=== PATIENT | male | born 1990 | race Caucasian/White ===

== ENCOUNTER 2019-06-22 02:51 | Emergency (ER) | payer MEDICAID ==
[~2019-06-22] VITALS: Ht 182.9 cm; Wt 94.3 kg
[~2019-06-22 02:51] MED LIST: APAP/HYDROCODON1 T13 PO; AUG500 PO; COL100 PO; PRI20 PO
[2019-06-22 03:00] VITALS: Ht 182.9 cm; Wt 94.3 kg
[2019-06-22 05:37] VITALS: BP 138/88
== END 2019-06-22 05:37 | disposition home or self-care (01) ==
LOC: ED 02:51
DX: H66.91 Otitis media, unspecified, right ear (principal)